=== PATIENT | male | born 1945 | race Caucasian/White ===

== ENCOUNTER → 2016-12-18 | Outpatient (CLI) | payer MEDICARE, OTHER ==
--- NOTE | 2016-12-18 09:28 | Diagnostic Imaging Report ---
EXAMINATION: Right breast diagnostic mammogram with tomography. A comparison left MLO view with tomography was performed. The current study was also evaluated with a Computer Aided Detection (CAD) system. INDICATION: Right breast pain. FINDINGS: There is retroareolar fibroglandular tissue, suggestive of minimal gynecomastia. Benign-appearing calcifications are seen. No suspicious mass is noted. IMPRESSION: Minimal fibroglandular tissue, suggestive of gynecomastia, is seen with no suspicious focal lesion. An ultrasound evaluation is pending. ACR BI-RADS Category 0: Incomplete. (Needs additional imaging evaluation). Result letter will be mailed to the patient. Note: At least 10% of breast cancer is not imaged by mammography. Dictated by: Dictated on workstation # [id number]
--- NOTE | 2016-12-18 09:40 | Diagnostic Imaging Report ---
EXAMINATION: Right breast ultrasound. INDICATION: Right breast pain. FINDINGS: The area of pain was examined with a nonspecific hypoechoic poorly defined area seen at the 10:30 o'clock position in the areolar region. It is associated with minimal shadowing with no definite lesion or border identified and this area appears slightly different when scanned from a different angle, in favor of tissue artifact rather than a true underlying lesion. There is no suspicious mass. IMPRESSION: A subtle hypoechoic area at the 10:30 o'clock position areolar region is seen with minimal shadowing. Upon additional scanning from different angles, it appears less prominent and is probably an artifact from the tissue architecture rather than representing a true underlying lesion. A 3 month followup mammogram and ultrasound of the right breast would be recommended to ensure no adverse development. ACR BI-RADS Category 3: Probably benign findings. Dictated by: Dictated on workstation # [id number]
== END ==
LOC: RAD 08:20
PROVIDERS: ATTEND Nurse Practitioner Family
DX: R92.8 Other abnormal and inconclusive findings on diagnostic imaging of breast (principal); N64.4 Mastodynia
CPT/HCPCS: 76641

== ENCOUNTER → 2017-04-04 | Outpatient (CLI) | payer MEDICARE, OTHER ==
--- NOTE | 2017-04-04 15:09 | Diagnostic Imaging Report ---
EXAMINATION: Ultrasound of the right breast. INDICATION: Right breast pain. FINDINGS: The previous right breast diagnostic mammogram and ultrasound exam performed on 12/18/2016 failed to show any sign of malignancy or an acute abnormality to account for the patient's pain. The diagnostic mammogram of the right breast performed earlier today in conjunction with this exam appeared stable when compared to the previous study. On this study, there is still no discrete solid or cystic mass in the retroareolar region of the breast. There is no abnormality to account for the patient's pain either. IMPRESSION: There is no evidence for malignancy or for an acute abnormality. When compared to the prior study, there has been no significant change. ACR category: 1 Negative. Dictated by: Dictated on workstation # [id number]
--- NOTE | 2017-04-04 15:50 | Diagnostic Imaging Report ---
EXAMINATION: Unilateral diagnostic right mammogram with CAD. INDICATION: Right breast pain. COMPARISON: This study is compared to the prior exam of 12/18/2016. PERSONAL HISTORY: At this time, the patient complains of persistent pain in the right retroareolar region. FINDINGS: As noted on the prior exam, there is only a small amount of fibroglandular tissue in the retroareolar region of the right breast. This finding is virtually no different than on the prior study. There is no primary or secondary sign of malignancy and there is no acute abnormality to account for the patient's pain. IMPRESSION: 1. When compared to the previous study, there has been no significant change. There is still no evidence for malignancy or for an acute abnormality. 2. Ultrasound is pending for further evaluation. ACR BI-RADS Category 0: Incomplete. (Needs additional imaging evaluation). Result letter will be mailed to the patient. Note: At least 10% of breast cancer is not imaged by mammography. Dictated by: Dictated on workstation # [id number]
== END ==
LOC: RAD 12:45
PROVIDERS: ATTEND Family Medicine
DX: N64.4 Mastodynia (principal)

== ENCOUNTER 2017-06-27 05:38 | Outpatient (CLI) | payer MEDICARE, OTHER ==
[~2017-06-27] VITALS: Ht 182.9 cm; Wt 94.3 kg
[2017-06-27] MEDS ORDERED: BIMA2.5D4 OP (12:44)
[2017-06-27] MEDS ORDERED: LOSA1TAB23 PO (12:44)
[2017-06-27] MEDS ORDERED: SIMV10TA3 PO (12:44)
[2017-06-27] MEDS ORDERED: TIMO5DRO31 OP (12:44)
== END 2017-06-27 12:49 ==
LOC: PREOP 05:38
PROVIDERS: ATTEND Surgery
DX: Z01.818 Encounter for other preprocedural examination (principal); Z12.11 Encounter for screening for malignant neoplasm of colon; K21.9 Gastro-esophageal reflux disease without esophagitis

== ENCOUNTER 2017-07-04 09:55 | Day surgery (SDC) | payer MEDICARE, OTHER ==
[~2017-07-04] VITALS: Ht 182.9 cm; Wt 94.3 kg
[~2017-07-04 09:55] MED LIST: BIMA2.5D4 OP; LOSA1TAB23 PO; SIMV10TA3 PO; TIMO5DRO31 OP
[2017-07-04] MEDS ORDERED: NS IV 500 ML 500 ML IV PRN (10:09)
[2017-07-04] MEDS ORDERED: LIDOCAINE JELLY 2% (XYLOCAINE) 5 ML TUBE MM PRN (10:15)
[2017-07-04] MEDS ORDERED: HURRICAINE EXT TUBE (BENZOCAINE) XX PRN (10:15)
[2017-07-04 10:18] VITALS: BP 134/76
--- NOTE | 2017-07-04 10:49 | Progress Note-Pre Operative ---
Pre-Operative Progress Note H&P Reviewed The H&P was reviewed, patient examined and no changes noted. Date Seen by Provider: Jul 04, 2017 Time Seen by Provider: 10:30 Date H&P Reviewed: Jul 04, 2017 Time H&P Reviewed: :30 Pre-Operative Diagnosis: GERD, change bowel habits THOMAS IBARRA MD Jul 04, 2017 10:49 am
--- NOTE | 2017-07-04 10:49 | Conscious Sedation/ASA ---
Conscious Sedation Pre-Proced Time Reviewed: 10:30 ASA Class: 2 Airway Mallampati Classification: (tejon appropriate class) I. II. III, IV Lungs Heart ASA score ASA 1: a normal healthy patient ASA 2: a patient with a mild systemic disease (mid diabetes, controlled hypertension, obesity ASA 3: a patient with a severe systemic disease that limits activity (angina , COPD, prior Myocardial infarction) ASA 4: a patient with an incapacitating disease that is a constant threat to life (CHF, renal failure) ASA 5: a moribund patient not expected to survive 24 hrs. (ruptured aneurysm) ASA 6: a declared brain patient whose organs are being harvested. For emergent operations, add the letter E after the classification Grade 2 Sedation Plan: Analgesia, Amnesia, Plan communicated to team members, Discussed options with patient/fam, Discussed risks with patient/fam Note The patient is an appropriate candidate to undergo the planned procedure, sedation, and anesthesia. The patient immediately re-assessed prior to indication. THOMAS IBARRA MD Jul 04, 2017 10:49 am
[2017-07-04] MEDS ORDERED: ACETAMINOPHEN 325 MG TABLET/CAPLET (TYLENOL) PO PRN (11:00)
[2017-07-04] MEDS ORDERED: HYDROcodone/APAP 5 MG/325 MG (LORTAB) TAB PO PRN (11:00)
[2017-07-04] MEDS ORDERED: morphine INJ 10 MG/ML 1ML (SYR OR VIAL) IV PRN (11:00)
[2017-07-04] MEDS ORDERED: ONDANSETRON 4 MG/2 ML (SDV) Z0FRAN IV PRN (11:00)
[2017-07-04] MEDS ORDERED: MIDAZOLAM 2 MG/2 ML (VERSED) VIAL ONE ×4 (11:28)
[2017-07-04] MEDS ORDERED: fentaNYL INJECTION 100 MCG/2 ML AMP ONE (11:28)
[2017-07-04] MEDS ORDERED: LIDOCAINE JELLY 2% (XYLOCAINE) 5 ML TUBE ONE (11:29)
[2017-07-04] MEDS ORDERED: HURRICAINE EXT TUBE (BENZOCAINE) ONE (11:30)
[2017-07-04] MEDS: fentaNYL INJECTION 100 MCG/2 ML AMP IVP PRN ×2 (11:45→12:20)
[2017-07-04] MEDS: MIDAZOLAM 2 MG/2 ML (VERSED) VIAL IVP PRN ×3 (11:47→12:15)
--- NOTE | 2017-07-04 12:45 | Progress Note-Post Operative ---
Post-Operative Progess Note Surgeon (s)/Business Support Manager (s) Surgeon THOMAS IBARRA MD Business Support Manager: none Pre-Operative Diagnosis GERD, change bowel habits Post-Operative Diagnosis reflux esophagitis(class B), distal esophageal stricture, small HH(1.5cm), mild-mod gastritis. chronic stage 2 ext and int hemorrhoids, mild sigmoid diverticulosis. Procedure & Operative Findings Date of Procedure 07/04/17 Procedure Performed/Findings EGD with bx and balloon dilatation. Colonoscopy. Anesthesia Type CS Estimated Blood Loss Estimated blood loss (mL): minimal Specimens/Packing Specimens Removed GE jxn, antrum. THOMAS IBARRA MD Jul 04, 2017 12:45 pm
[2017-07-04] MEDS ORDERED: PANT40TA2 PO (12:46)
--- NOTE | 2017-07-04 12:47 | Discharge Inst-Surgical ---
D/C Lap Instructions-KIDO New, Converted, or Re-Newed RX: RX on Chart Follow Up PRN Activity as tolerated High Fiber Diet 25g or more per day Avoid Alcohol, Caffeine, Spicy [place] and Acid foods. Drink 64 fluid oz or more of fluids per day. Symptoms to Report: Fever over 101 degree F, Nausea/Vomiting If any problems/questions: Contact your physician or go to Emergency Room THOMAS IBARRA MD Jul 04, 2017 12:47 pm
[2017-07-04 12:55] VITALS: BP 120/66
[2017-07-04 13:20] VITALS: BP 122/79
[2017-07-04 13:30] VITALS: BP 122/79
--- NOTE | 2017-07-04 17:15 | OPERATIVE REPORT ---
DATE OF SERVICE: 07/04/2017 ATTENDING PRIMARY CARE PHYSICIAN: Marguerite Irby MD PREOPERATIVE DIAGNOSIS: Gastroesophageal reflux disease, change in bowel habits. POSTOPERATIVE DIAGNOSIS: Distal esophageal stricture, small hiatal hernia approximately 1.5 cm in size, mild to moderate gastritis. Chronic stage II external and internal hemorrhoids, mild sigmoid diverticulosis. PROCEDURE: EGD with biopsy and balloon dilatation. Colonoscopy. SURGEON: Thomas Ibarra MD ANESTHESIA: Conscious sedation. ESTIMATED BLOOD LOSS: Minimal. FINDINGS: EGD reflux esophagitis class B, distal esophageal stricture and Schatzki's ring, small hiatal hernia approximately 1.5 cm in size, imru-gt-anydggzn gastritis. Pylorus and duodenum appeared normal. Colonoscopy chronic stage II external and internal hemorrhoids, mild sigmoid diverticulosis with no signs of diverticulitis. The remainder of the colon was normal. DISPOSITION: The patient tolerated the procedure well. INDICATIONS: The patient is a 72-year-old male, who has had worsening gastroesophageal reflux disease. He reports an epigastric burning sensation as well as a crampy pain and also at times feels substernal pressure sensation. He also reports his father was diagnosed with a stomach cancer at around age 76. He has tried xtgi-jvq-kemulin medications; however, they have not been helpful. He also reports a change in bowel habits encompassing a crampy lower abdominal pain as well as an episodes of constipation. He does not report any red blood per rectum nor any dark tarry stools. He does not report any family history of colon cancer. DESCRIPTION OF PROCEDURE: The patient was brought to the endoscopy suite, laid in the left lateral decubitus position. After adequate IV pain and sedating medications and conscious sedation anesthesia, the mouthpiece was applied. The endoscope was placed in the mouth, visualizing the pharynx and hypopharyngeal region. Vocal cords, epiglottis and vallecula identified and appeared to be normal. The endoscope was then gently intubated in the esophageal opening esophagus insufflated. The endoscope was then advanced to the first, second and third portion of the esophagus at the level of the GE junction, a reflux esophagitis class B identified. There was also a distal esophageal stricture and Schatzki's ring identified. This was mild. The endoscope was then advanced in the stomach. The endoscope retroflexed visualizing a hiatal hernia, which was small and approximately 1.5 cm in size. A gwlx-uk-bwyjkayp gastritis was noted. There were no ulcers, polyps or any neoplasms identified. A biopsy was then taken of the antrum and GE junction with forceps with visualization of good hemostasis. Endoscope was then advanced to the pylorus into the first and second portion of duodenum, which appeared normal with no distal obstructions. We then decided to proceed with a balloon dilatation of esophageal stricture. A CRE fixed guidewire balloon was placed in the stomach and pulled back to the area of the stricture. We then proceeded at 3 atmospheres of pressure or 15 mm in diameter with no resistance. We then proceeded to 4.5 atmospheres of pressure or 16 mm in diameter with minimal resistance. We then proceeded to 7 atmospheres of pressure 18 mm in luminal diameter with mild resistance and left this in place for approximately 60 seconds. The balloon was then desufflated and removed with visualization of no mucosal tears as well as no bleeding. The endoscope was then slowly withdrawn while taking a second look and suctioning of residual air with no additional findings. The patient tolerated this portion of this portion of the procedure well. We will recommend medical management with the necessary lifestyle and diet accommodation including small and more frequent meals, avoidance of eating at night as well as head elevation while lying supine. He also needs to avoid caffeinated beverages, spicy, greasy and acidic foods. We will also start him on Protonix 40 mg daily. Under the same conscious sedation anesthesia, we then proceeded with the colonoscopy portion of the procedure. A digital rectal examination was performed, which revealed mild chronic stage II external and internal hemorrhoids, not actively edematous nor inflamed and no bleeding. Normal sphincter tone was felt and there were no palpable masses. The endoscope was then intubated into the anus and the rectum insufflated. The endoscope was then advanced to the valves of Terry of the rectum with no polyps or any neoplasms identified. We then proceeded through the sigmoid colon where mild sigmoid diverticulosis identified. The endoscope was then advanced to the remainder of the descending, transverse, ascending colon and cecum. These segments were normal. There were no polyps or any neoplasms identified throughout the colon or rectum. The endoscope was then slowly withdrawn while taking a second look and suctioning of residual air with no additional findings. The patient tolerated the procedure well. We will recommend conservative management with a high fiber diet with at least 30 grams of fiber per day as well as at least 64 fluid ounces of water daily to promote soft stools on a daily basis. He does not have any family history of colon cancer. No polyps are detected and he may wait 10 years for his next colonoscopy; however, sooner if he becomes symptomatic. Job ID: [id number] DocumentID: [id number] Dictated Date: 07/04/2017 12:40:38 Shape Hand Date: 07/04/2017 17:15:25 Dictated By: THOMAS IBARRA MD
== END 2017-07-04 13:31 | disposition home or self-care (01) ==
LOC: ENDO 09:55
PROVIDERS: ATTEND Surgery
DX: K22.2 Esophageal obstruction (principal); K44.9 Diaphragmatic hernia without obstruction or gangrene; K57.30 Diverticulosis of large intestine without perforation or abscess without bleeding; K64.1 Second degree hemorrhoids; I10 Essential (primary) hypertension; E78.5 Hyperlipidemia, unspecified; E29.1 Testicular hypofunction

== ENCOUNTER → 2020-10-02 | Outpatient (CLI) | payer MEDICARE, OTHER ==
[~2020-10-02] MED LIST changes: +PANT40TA2 PO; +SIMV10TA26 PO; -SIMV10TA3 PO
[2020-10-02 14:01] LABS: BASOPHILS % (AUTO) 1 % (0-10); EOSINOPHILS # (AUTO) 0.1 10^3/uL (0.0-0.3); EOSINOPHILS % (AUTO) 2 % (0-10); HEMATOCRIT 46 % (40-54); HEMOGLOBIN 15.3 g/dL (13.3-17.7); LYMPHOCYTES # (AUTO) 0.9 10^3/uL (1.0-4.0); LYMPHOCYTES % (AUTO) 15 % (12-44); MEAN CORPUSCULAR HEMOGLOBIN 30 pg (25-34); MEAN CORPUSCULAR HGB CONC 33 g/dL (32-36); MEAN CORPUSCULAR VOLUME 91 fL (80-99); MEAN PLATELET VOLUME 10.5 fL (9.0-12.2); MONOCYTES # (AUTO) 0.6 10^3/uL (0.0-1.0); MONOCYTES % (AUTO) 10 % (0-12); NEUTROPHILS # (AUTO) 4.5 10^3/uL (1.8-7.8); NEUTROPHILS % (AUTO) 73 % (42-75); PLATELET COUNT 169 10^3/uL (130-400); WHITE BLOOD COUNT 6.2 10^3/uL (4.3-11.0)
== END ==
LOC: LAB 13:24
PROVIDERS: ATTEND Nurse Practitioner Family
DX: G44.89 Other headache syndrome (principal); M79.18 Myalgia, other site; R53.83 Other fatigue; W57.XXXA Bitten or stung by nonvenomous insect and other nonvenomous arthropods, initial encounter
CPT/HCPCS: 36415; 85025; 86618; 86666; 86668; 86757

== ENCOUNTER → 2020-12-01 | Outpatient (CLI) | payer MEDICARE, OTHER ==
--- NOTE | 2020-12-01 11:37 | Diagnostic Imaging Report ---
INDICATION: Dyspnea on exertion. PA and lateral views were obtained. FINDINGS: The heart size, mediastinal configuration, and pulmonary vascularity are within normal limits. There is no pleural effusion, pneumothorax, or pneumonia. The osseous structures are unremarkable. IMPRESSION: No acute cardiopulmonary abnormality. Dictated by: Dictated on workstation # [id number]
== END ==
LOC: RAD
PROVIDERS: ATTEND Internal Medicine Cardiovascular Disease
DX: I49.3 Ventricular premature depolarization (principal)
CPT/HCPCS: 71046

== ENCOUNTER → 2020-12-03 | Outpatient (CLI) | payer MEDICARE, OTHER | LOC: CARD 09:30 | PROVIDERS: ATTEND Internal Medicine Cardiovascular Disease | DX: I35.8 Other nonrheumatic aortic valve disorders (principal); R06.09 Other forms of dyspnea | CPT/HCPCS: 93306 ==

== ENCOUNTER → 2020-12-09 | Outpatient (CLI) | payer MEDICARE, OTHER ==
[~2020-12-09] VITALS: Ht 182 cm; Wt 95.0 kg
[~2020-12-09] MED LIST changes: +CATHETER FLUSH 10 ML SYR IV PRN
[2020-12-09 09:10] VITALS: BP 134/88
--- NOTE | 2020-12-10 09:08 | NUCLEAR STRESS TEST ---
TREADMILL NUCLEAR STRESS TEST Date of procedure: 12/09/2020. Primary care provider: Marguerite Irby MD. Admitting physician: Huseyin Mauro Jr., MD. INDICATION: Dyspnea on exertion. BASELINE ELECTROCARDIOGRAM: Sinus bradycardia at 55 bpm, otherwise unremarkable tracing. STRESS TEST PROCEDURE: The patient was exercised for a total of 6 minutes and 45 seconds of the standard Terrell protocol achieving a maximum MET level of 8.1. The resting heart rate was 55 bpm and the peak heart rate was 139 bpm, which represents 96% of the maximum predicted heart rate. The resting blood pressure was 134/88 mmHg and the peak blood pressure was 206/87 mmHg. This represents a normal heart rate and a hypertensive blood pressure response to exercise. The test was stopped due to fatigue. There was no chest discomfort during the test. There were premature ventricular complexes as isolated and couplet beats during the test. There were borderline exercise-induced electrocardiogram changes with approximately [address] depression in the inferior leads that improved in recovery. The patient exhibited good exercise capacity for age. NUCLEAR PROCEDURE: The patient was administered 10.5 mCi of intravenous technetium 99m Tetrofosmin at rest for the rest images. The patient was subsequently administered 31.7 mCi of intravenous technetium 99 M Tetrofosmin at peak stress for the stress images. Following an appropriate wait after each injection, imaging was obtained. The images were subsequently processed and reformatted in the usual views. Gated imaging was obtained. The image quality was adequate but with some degree of gastrointestinal attenuation artifact. CT attenuation correction was used as a adjunct to standard imaging. Both the corrected and uncorrected images were reviewed for interpretation. NUCLEAR RESULTS: There was normal myocardial perfusion in all segments without evidence of infarction or ischemia. There was normal left ventricular chamber size with an end-diastolic volume of 75 mL and an end-systolic volume of 34 mL. There was no evidence of transient ischemic dilatation. The TID ratio was 1.06. There was normal wall motion in all segments with a calculated ejection fraction of 55%. IMPRESSION: 1. Normal heart rate and a hypertensive blood pressure response to exercise. 2. There was no exercise-induced chest discomfort. 3. There were premature ventricular complexes during the test as isolated and couplet beats. 4. There were borderline exercise-induced electrocardiogram changes that resolved in recovery. 5. The patient exhibited good exercise capacity for age. 6. There was normal myocardial perfusion in all segments without evidence of infarction or ischemia. 7. There was normal wall motion in all segments with a calculated ejection fraction of 55%. Certain portions of this document may have been dictated utilizing voice recognition technology. Inherent to this technology, typographical and grammatical errors may exist. As much as I am diligent to identify and correct these mistakes, some errors may remain in the document. HUSEYIN MAURO JR, MD Dec 10, 2020 09:08
== END ==
LOC: CARD 08:00
PROVIDERS: ATTEND Internal Medicine Cardiovascular Disease
DX: I49.3 Ventricular premature depolarization (principal)
CPT/HCPCS: 78452; 93017; A9502

== ENCOUNTER 2021-04-18 09:15 | Outpatient (CLI) | payer MEDICARE ==
[~2021-04-18] VITALS: Ht 182.9 cm; Wt 95.0 kg
[~2021-04-18 09:15] MED LIST changes: -CATHETER FLUSH 10 ML SYR IV PRN
[2021-04-18 09:22] VITALS: BP 142/76
[2021-04-18 09:30] VITALS: BP 142/76
[2021-04-18] MEDS ORDERED: CASIRIVIMAB/IMDEVIMAB 1,200 MG in NS (IVPB) 50 ML IV ONE (09:30)
[2021-04-18] MEDS ORDERED: ACETAMINOPHEN 500 MG TAB (TYLENOL) PO PRN (09:30)
[2021-04-18] MEDS ORDERED: ONDANSETRON 4 MG/2 ML (SDV) Z0FRAN IV PRN (09:30)
[2021-04-18] MEDS ORDERED: diphenhydrAMINE 50 MG/ML INJ (BENADRYL) IV PRN (09:30)
[2021-04-18] MEDS ORDERED: EPINEPHrine INJECTION 1 MG/ML AMP IM PRN (09:30)
[2021-04-18 10:30] VITALS: BP 147/83
== END 2021-04-18 10:50 | disposition home or self-care (01) ==
LOC: INFUSION 09:15
PROVIDERS: ATTEND Nurse Practitioner Family
DX: U07.1 COVID-19 (principal)

== ENCOUNTER 2021-09-13 16:01 | Emergency (ER) | payer MEDICARE ==
[~2021-09-13] VITALS: Ht 183 cm; Wt 95.0 kg
[2021-09-13 16:12] VITALS: BP 137/80
[2021-09-13] MEDS ORDERED: NS IV 1000 ML 1,000 ML IV SCH (16:45)
[2021-09-13 16:46] LABS: BASOPHILS % (AUTO) 0 % (0-10); EOSINOPHILS % (AUTO) 0 % (0-10); HEMATOCRIT 45 % (40-54); HEMOGLOBIN 15.1 g/dL (13.3-17.7); LYMPHOCYTES # (AUTO) 0.8 10^3/uL (1.0-4.0); LYMPHOCYTES % (AUTO) 8 % (12-44); MEAN CORPUSCULAR HEMOGLOBIN 30 pg (25-34); MEAN CORPUSCULAR HGB CONC 34 g/dL (32-36); MEAN CORPUSCULAR VOLUME 90 fL (80-99); MEAN PLATELET VOLUME 10.5 fL (9.0-12.2); MONOCYTES # (AUTO) 0.6 10^3/uL (0.0-1.0); MONOCYTES % (AUTO) 6 % (0-12); NEUTROPHILS # (AUTO) 8.9 10^3/uL (1.8-7.8); NEUTROPHILS % (AUTO) 86 % (42-75); PLATELET COUNT 221 10^3/uL (130-400); WHITE BLOOD COUNT 10.4 10^3/uL (4.3-11.0)
[2021-09-13 16:49] LABS: BILIRUBIN,URINE NEGATIVE (NEGATIVE); CLARITY,URINE CLEAR; COLOR,URINE YELLOW; GLUCOSE, URINE (UA) NEGATIVE (NEGATIVE); KETONES,URINE NEGATIVE (NEGATIVE); LEUKOCYTE ESTERASE ,URINE NEGATIVE (NEGATIVE); NITRITE,URINE NEGATIVE (NEGATIVE); PROTEIN,URINE 1+ (NEGATIVE)
[2021-09-13 16:51] LABS: ALBUMIN 3.9 GM/DL (3.2-4.5); POTASSIUM 3.7 MMOL/L (3.6-5.0)
[2021-09-13 16:52] LABS: CALCIUM 9.1 MG/DL (8.5-10.1); INR 1.1 (0.8-1.4); PROTHROMBIN TIME PATIENT 14.5 SEC (12.2-14.7)
[2021-09-13 16:53] LABS: TOTAL PROTEIN 7.5 GM/DL (6.4-8.2)
[2021-09-13 16:55] LABS: BILIRUBIN,TOTAL 0.7 MG/DL (0.1-1.0)
--- NOTE | 2021-09-13 16:55 | Diagnostic Imaging Report ---
HISTORY: Chest pain COMPARISON: 12/01/2020 TECHNIQUE: Frontal view of the chest FINDINGS: Lung volumes are low with elevation of the right hemidiaphragm. No consolidation is seen. The cardiac silhouette is normal in size. There is no pleural effusion or pneumothorax. IMPRESSION: 1. Low lung volumes with no acute pulmonary abnormality seen. Dictated by: Dictated on workstation # [id number]
[2021-09-13 16:57] LABS: BACTERIA,URINE NEGATIVE /HPF; SQUAMOUS EPITHELIAL CELL,UR 0-2 /HPF; WBC,URINE 0-2 /HPF
[2021-09-13 16:57] LABS: CREATININE SERUM 1.02 MG/DL (0.60-1.30)
[2021-09-13 17:00] LABS: MAGNESIUM 1.9 MG/DL (1.6-2.4)
[2021-09-13 17:05] LABS: LYMPHOCYTES % (MANUAL) 7 %; MONOCYTES % (MANUAL) 9 %; NEUTROPHILS % (MANUAL) 84 %; RBC MORPH NORMAL
[2021-09-13 17:21] LABS: CREATINE KINASE 121 U/L (30-200)
--- NOTE | 2021-09-13 18:00 | ED General ---
General Chief Complaint: General Problems/Pain Stated Complaint: WEAKNESS Nursing Triage Note: pt states has not been feeling good since sunday, was out in the heat a lot last week, states "a touch of chest pain about 2 hrs ago" while laying down. denies pain now. "totally fatigued." was around someone with covid last week. Source of Information: Patient Exam Limitations: No Limitations History of Present Illness Date Seen by Provider: Sep 13, 2021 Time Seen by Provider: 17:43 Allergies and Home Medications Allergies Coded Allergies: No Known Drug Allergies (Unverified , 06/27/17) Patient Home Medication List Bimatoprost (Lumigan) 2.5 Ml Drops, 2.5 ML OP DAILY, (Reported) Entered as Reported by: JOSE SMITH on 06/27/17 1244 Losartan/Hydrochlorothiazide (Losartan-Hctz 100-25 mg Tab) 1 Each Tablet, 1 EACH PO DAILY, (Reported) Entered as Reported by: JOSE SMITH on 06/27/17 1244 Pantoprazole Sodium (Protonix) 40 Mg Tablet.dr, 40 MG PO DAILY Prescribed by: THOMAS IBARRA on 07/04/17 1246 Simvastatin (Simvastatin) 10 Mg Tablet, 10 MG PO DAILY, (Reported) Entered as Reported by: JOSE SMITH on 06/27/17 1244 Timolol Maleate (Timolol Maleate) 5 Ml Drop.daily, 5 ML OP DAILY, (Reported) Entered as Reported by: JOSE SMITH on 06/27/17 1244 Past Grftxyw-Vleuxj-Xefxdf Hx Patient Social History Tobacco Use?: No Substance use?: No Alcohol Use?: Yes Alcohol type: Beer, Hard Liquor, Wine Alcohol Frequency: Rarely Immunizations Up To Date COVID19 Vaccine [employer]: moderna Seasonal Allergies Seasonal Allergies: No Past Medical History High Cholesterol, Hypertension Reproductive Disorders: No Sexually Transmitted Disease: No HIV/AIDS: No Gastroesophageal Reflux Glaucoma Loss of Vision: Bilateral Hearing Impairment: Denies Skin What Type of Treatment Did You: Surgical Intervention Adverse Reaction/Blood Tranf: No (N/A) Physical Exam Vital Signs Vital Signs - First Documented 09/13/21 16:12 Temp 36.4 Pulse 92 Resp 18 B/P (MAP) 137/80 (99) Pulse Ox 93 O2 Delivery Room Air Capillary Refill : Less Than 3 Seconds Height, Weight, BMI Height: 6'0.00" Weight: 208lbs. 0.0oz. 94.016014yh; 28.00 BMI Method: Progress/Results/Core Measures Suspected Sepsis SIRS Temperature: Pulse: 92 Respiratory Rate: 18 Laboratory Tests 09/13/21 16:20: White Blood Count 10.4 Blood Pressure 137 /80 Mean: 99 Laboratory Tests 09/13/21 16:20: Creatinine 1.02, INR Comment 1.1, Platelet Count 221, Total Bilirubin 0.7 Results/Orders Lab Results Laboratory Tests Test 09/13/21 16:12 09/13/21 16:20 09/13/21 16:43 Range/Units Influenza Type A (RT-PCR) Not Detected Not Detecte Influenza Type B (RT-PCR) Not Detected Not Detecte SARS-CoV-2 RNA (RT-PCR) Not Detected Not Detecte White Blood Count 10.4 4.3-11.0 10^3/uL Red Blood Count 5.02 4.30-5.52 10^6/uL Hemoglobin 15.1 13.3-17.7 g/dL Hematocrit 45 40-54 % Mean Corpuscular Volume 90 80-99 fL Mean Corpuscular Hemoglobin 30 25-34 pg Mean Corpuscular Hemoglobin Concent 34 32-36 g/dL Red Cell Distribution Width 13.9 10.0-14.5 % Platelet Count 221 130-400 10^3/uL Mean Platelet Volume 10.5 9.0-12.2 fL Immature Granulocyte % (Auto) 0 % Neutrophils (%) (Auto) 86 H 42-75 % Lymphocytes (%) (Auto) 8 L 12-44 % Monocytes (%) (Auto) 6 0-12 % Eosinophils (%) (Auto) 0 0-10 % Basophils (%) (Auto) 0 0-10 % Neutrophils # (Auto) 8.9 H 1.8-7.8 10^3/uL Lymphocytes # (Auto) 0.8 L 1.0-4.0 10^3/uL Monocytes # (Auto) 0.6 0.0-1.0 10^3/uL Eosinophils # (Auto) 0.0 0.0-0.3 10^3/uL Basophils # (Auto) 0.0 0.0-0.1 10^3/uL Immature Granulocyte # (Auto) 0.0 0.0-0.1 10^3/uL Neutrophils % (Manual) 84 % Lymphocytes % (Manual) 7 % Monocytes % (Manual) 9 % Blood Morphology Comment NORMAL Prothrombin Time 14.5 12.2-14.7 SEC INR Comment 1.1 0.8-1.4 Activated Partial Thromboplast Time 29 24-35 SEC Sodium Level 135 135-145 MMOL/L Potassium Level 3.7 3.6-5.0 MMOL/L Chloride Level 100 98-107 MMOL/L Carbon Dioxide Level 24 21-32 MMOL/L Anion Gap 11 5-14 MMOL/L Blood Urea Nitrogen 16 7-18 MG/DL Creatinine 1.02 0.60-1.30 MG/DL Estimat Glomerular Filtration Rate 76 BUN/Creatinine Ratio 16 Glucose Level 129 H 70-105 MG/DL Calcium Level 9.1 8.5-10.1 MG/DL Corrected Calcium 9.2 8.5-10.1 MG/DL Magnesium Level 1.9 1.6-2.4 MG/DL Total Bilirubin 0.7 0.1-1.0 MG/DL Aspartate Amino Transf (AST/SGOT) 22 5-34 U/L Alanine Aminotransferase (ALT/SGPT) 20 0-55 U/L Alkaline Phosphatase 59 40-136 U/L Total Creatine Kinase 121 30-200 U/L Myoglobin 76.3 10.0-92.0 NG/ML Troponin I < 0.028 <0.028 NG/ML Total Protein 7.5 6.4-8.2 GM/DL Albumin 3.9 3.2-4.5 GM/DL Urine Color YELLOW Urine Clarity CLEAR Urine pH 6.0 5-9 Urine Specific [place] >=1.030 1.016-1.022 Urine Protein 1+ H NEGATIVE Urine Glucose (UA) NEGATIVE NEGATIVE Urine Ketones NEGATIVE NEGATIVE Urine Nitrite NEGATIVE NEGATIVE Urine Bilirubin NEGATIVE NEGATIVE Urine Urobilinogen 0.2 < = 1.0 MG/DL Urine Leukocyte Esterase NEGATIVE NEGATIVE Urine RBC (Auto) NEGATIVE NEGATIVE Urine RBC NONE /HPF Urine WBC 0-2 /HPF Urine Squamous Epithelial Cells 0-2 /HPF Urine Renal Epithelial Cells NONE /HPF Urine Crystals NONE /LPF Urine Bacteria NEGATIVE /HPF Urine Casts NONE /LPF Urine Mucus LARGE H /LPF Urine Culture Indicated NO My Orders Orders - LEISA,STORMY D SHIPPER/RECEIVER Ua Culture If Indicated (09/13/21 16:03) Covid 19 Inhouse Test (09/13/21 16:03) Influenza A And B By Pcr (09/13/21 16:03) Ekg Tracing (09/13/21 16:18) Vital Signs/I&O 09/13/21 16:12 Temp 36.4 Pulse 92 Resp 18 B/P (MAP) 137/80 (99) Pulse Ox 93 O2 Delivery Room Air Capillary Refill : Less Than 3 Seconds Blood Pressure Mean: 99 Departure Impression Primary Impression: Fatigue Disposition: 01 HOME, SELF-CARE Condition: Improved Departure-Patient Inst. Decision time for Depature: 17:58 Referrals: DENA IRBY MD (PCP/Family) Primary Care Physician Patient Instructions: Fatigue Add. Discharge Instructions: Plan: 1. Follow up with Dr. Irby on Sunday or early next week. 2. May be beneficial to have workup for Transient Ischemic Attack. 3. Make sure you do not stay outside in heat for long periods of time. If you are working outside, drink plenty of fluids to stay hydrated. 4. Return for any new, concerning, or worsening symptoms. All discharge instructions reviewed with patient and/or family. Voiced understanding. CHARLOTTE DE LA FUENTE SHIPPER/RECEIVER Sep 13, 2021 18:00
== END 2021-09-13 19:09 | disposition home or self-care (01) ==
LOC: EDUNIT# 16:01 → ER 16:04
DX: R53.83 Other fatigue (principal); Z20.822 Contact with and (suspected) exposure to COVID-19
CPT/HCPCS: 36415; 71045; 80053; 81000; 82550; 83735; 83874; 84484; 85007; 85027; 85610; 85730; 87636; 93005; 93041